=== PATIENT | female | born 1960 | race American Indian/Alaskan Native ===

== ENCOUNTER 2019-07-28 00:07 | Emergency (ER) | payer OTHER ==
--- NOTE | 2019-07-28 00:52 | XRay Report ---
LEFT TIBIA-FIBULA 2 VIEW(S) INDICATION / CLINICAL INFORMATION: fall COMPARISON: None available. FINDINGS: BONES / JOINT(S): Moderately displaced lateral tibial plateau fracture with about 1.3 cm gap in the a rticular surface. Vertical fracture line extends to the lateral cortex of the proximal tibial metadia physis. In addition, there are comminuted fractures of the proximal tibial and fibular shafts with mi ld displacement. No significant arthritis. SOFT TISSUES: No significant abnormality. ADDITIONAL FINDINGS: None. IMPRESSION: 1. Moderately displaced lateral tibial plateau fracture. 2. Comminuted, mildly displaced fractures of the proximal left tibial and fibular shafts. Signer Name: Samson Baca MD Signed: 07/28/2019 12:48 AM Workstation Name: [id number]
[2019-07-28] MEDS ORDERED: ONDANSETRON 4 MG ODT TAB PO ONE (01:22)
[2019-07-28] MEDS ORDERED: oxyCODONE /ACETAMINOPHEN 5-325MG TAB PO ONE (01:22)
[2019-07-28] MEDS ORDERED: IBUPROFEN 600 MG TAB PO ONE (01:22)
--- NOTE | 2019-07-28 01:33 | Emergency Department Report ---
ED Fall HPI - General Chief Complaint: Extremity Injury, Lower Stated Complaint: LF LEG PAIN Source: patient Mode of arrival: Wheelchair - History of Present Illness Initial Comments: Patient is a 59-year-old -[place] female with a history of hypertension and edw-lbahysx-ybcgkulyf diabetes who presented to the ED with complaint of acute onset persistent severe left knee and lower leg pain and swelling after she slipped lost balance and fell down on the floor from a 4 foot ladder while trying to clean her ceiling fans about 7 hours ago. Patient states that she landed on the left knee during the fall. Patient states that she is unable to bear weight on the left leg because of severe left knee pain. Patient denies head or neck injuries, back injuries, loss of consciousness, hip pain, di zziness, syncope, seizures, chest pain or shortness of breath, numbness and tingling or weakness of lower extremities bilaterally, headache or change in vision. MD Complaint: fall, other (left knee and lower leg pain, swelling, unable to bear weight on left leg) -: Sudden, hour(s) (7) Fall From: from height (distance) (4 feet) When Fall Occurred: 4-6 hours EVENTS MANAGER Fall Witnessed: no Place Fall Occurred: home Loss of Consciousness: none Prolonged Down Time?: no Symptoms Prior to Fall: none Location: other (left knee and lower leg) Location - Extremities: Left: Knee (pain, swelling), Leg (Pain) Severity: severe Severity scale (0 -10): 9 Quality: sharp, aching Context: tripped/slipped Associated Symptoms: denies. denies: headache, neck pain, numbness, weakness, chest paint, shortness of breath, abdominal pain, hematuria, unable to walk, lightheaded, vertigo, confusion, other - Related Data Home Medications Medication Instructions Recorded Confirmed Last Taken Glimepiride [Amaryl] 4 mg PO BID 03/12/13 03/12/13 03/11/13 20:00 Losartan [Cozaar] 100 mg PO QDAY 03/12/13 03/12/13 Unknown Ramipril 10 mg PO QDAY 03/12/13 03/12/13 Unknown metFORMIN [Glucophage] 850 mg PO BID 03/12/13 03/12/13 03/11/13 20:00 Previous Rx's Medication Instructions Recorded Last Taken Type Fluticasone Propionate [Flonase] 16 gm NS QDAY #1 spray.susp 03/12/13 Unknown Rx Loratadine (Nf) [Claritin] 10 mg PO DAILY #20 tablet 03/12/13 Unknown Rx Meclizine [Antivert] 12.5 mg PO TID PRN #15 tablet 03/12/13 Unknown Rx oxyCODONE /ACETAMINOPHEN [Percocet 1 tab PO Q6HR PRN #14 tablet 03/12/13 Unknown Rx 5/325 mg] predniSONE [Deltasone] 20 mg PO BID #4 tablet 03/12/13 Unknown Rx Allergies Allergy/AdvReac Type Severity Reaction Status Date / Time No Known Allergies Allergy Unverified 03/12/13 12:34 ED Review of Systems ROS: Stated complaint: LF LEG PAIN Other details as noted in HPI Constitutional: denies: chills, fever Eyes: denies: eye pain, eye discharge, vision change ENT: denies: ear pain, throat pain Respiratory: denies: cough, shortness of breath, wheezing Cardiovascular: denies: chest pain, palpitations Endocrine: no symptoms reported Gastrointestinal: denies: abdominal pain, nausea, vomiting, diarrhea, hematochezia Genitourinary: denies: urgency, dysuria, frequency, hematuria, discharge Musculoskeletal: joint swelling (Left knee pain and swelling), arthralgia (Left knee and left lower leg pain and swelling), myalgia. denies: back pain Skin: denies: rash, lesions Neurological: denies: headache, weakness, paresthesias Psychiatric: denies: anxiety, depression Hematological/Lymphatic: denies: easy bleeding, easy bruising ED Past Medical Hx - Past Medical History Hx Hypertension: Yes Hx Diabetes: Yes - Social History Smoking Status: Never Smoker Substance Use Type: None - Medications Home Medications: Home Medications Medication Instructions Recorded Confirmed Last Taken Type Fluticasone Propionate [Flonase] 16 gm NS QDAY #1 spray.susp 03/12/13 Unknown Rx Glimepiride [Amaryl] 4 mg PO BID 03/12/13 03/12/13 03/11/13 20:00 History Loratadine (Nf) [Claritin] 10 mg PO DAILY #20 tablet 03/12/13 Unknown Rx Losartan [Cozaar] 100 mg PO QDAY 03/12/13 03/12/13 Unknown History Meclizine [Antivert] 12.5 mg PO TID PRN #15 tablet 03/12/13 Unknown Rx Ramipril 10 mg PO QDAY 03/12/13 03/12/13 Unknown History metFORMIN [Glucophage] 850 mg PO BID 03/12/13 03/12/13 03/11/13 20:00 History oxyCODONE /ACETAMINOPHEN [Percocet 1 tab PO Q6HR PRN #14 tablet 03/12/13 Unknown Rx 5/325 mg] predniSONE [Deltasone] 20 mg PO BID #4 tablet 03/12/13 Unknown Rx ED Physical Exam - General Limitations: No Limitations General appearance: alert, in no apparent distress - Head Head exam: Present: atraumatic, normocephalic, normal inspection - Eye Eye exam: Present: normal appearance, PERRL, EOMI Pupils: Present: normal accommodation - ENT ENT exam: Present: normal exam, normal orophraynx, mucous membranes moist, TM's normal bilaterally, normal external ear exam - Neck Neck exam: Present: normal inspection, full ROM. Absent: tenderness, lymphadenopathy - Respiratory Respiratory exam: Present: normal lung sounds bilaterally. Absent: respiratory distress, wheezes, rales, rhonchi, chest wall tenderness, accessory muscle use, decreased breath sounds, prolonged expiratory - Cardiovascular Cardiovascular Exam: Present: regular rate, normal rhythm, normal heart sounds. Absent: systolic murmur, diastolic murmur, rubs, gallop - GI/Abdominal GI/Abdominal exam: Present: soft, normal bowel sounds. Absent: tenderness, guarding, rebound, hyperactive bowel sounds, hypoactive bowel sounds, organomegaly - Extremities Exam Extremities exam: Present: normal inspection, tenderness (Palpable severe left knee and left lower leg tenderness with limited range of motion due to pain), normal capillary refill, joint swelling (Left knee tenderness and swelling), calf tenderness. Absent: full ROM (Limited range of motion due to pain), pedal edema - Back Exam Back exam: Present: normal inspection, full ROM. Absent: tenderness, CVA tenderness (R), CVA tenderness (L), muscle spasm, paraspinal tenderness, vertebral tenderness - Neurological Exam Neurological exam: Present: alert, oriented X3, CN II-XII intact, abnormal gait (Unable to ambulate because of severe pain in the left knee), reflexes normal - Psychiatric Psychiatric exam: Present: normal affect, normal mood - Skin Skin exam: Present: warm, dry, intact, normal color. Absent: rash ED Course Vital Signs 07/28/19 07/28/19 07/28/19 00:12 01:44 02:00 Temperature 98.0 F 98.1 F Pulse Rate 104 H 98 H Respiratory 18 18 18 Rate Blood Pressure 136/64 Blood Pressure 157/62 [Left] O2 Sat by Pulse 99 99 Oximetry - Reevaluation(s) Reevaluation #1: 07/28/19 02:16 I paged and discussed the patient case with the [facility] transfer center and Dr. Archer the trauma attending physician accepted the patient. ED Medical Decision Making - Radiology Data Radiology results: report reviewed, image reviewed Findings [facility] [address] [place] [address] XRay Report Signed Patient: ESTELITA FUNG MR#: [id number] : 1960 Acct:[id number] Age/Sex: 59 / F ADM Date: 07/28/19 Loc: ED Attending Dr: Ordering Physician: MICHAELA SHAH MD Date of Service: 07/28/19 Procedure(s): XR tibia fibula 2V LT Accession Number(s): [id number] cc: MICHAELA SHAH MD Fluoro Time In Minutes: LEFT TIBIA-FIBULA 2 VIEW(S) INDICATION / CLINICAL INFORMATION: fall COMPARISON: None available. FINDINGS: BONES / JOINT(S): Moderately displaced lateral tibial plateau fracture with about 1.3 cm gap in the articular surface. Vertical fracture line extends to the lateral cortex of the proximal tibial metadiaphysis. In addition, there are comminuted fractures of the proximal tibial and fibular shafts with mild displacement. No significant arthritis. SOFT TISSUES: No significant abnormality. ADDITIONAL FINDINGS: None. IMPRESSION: 1. Moderately displaced lateral tibial plateau fracture. 2. Comminuted, mildly displaced fractures of the proximal left tibial and fibular shafts. Signer Name: Samson Baca MD Signed: 07/28/2019 12:48 AM Workstation Name: [id number] Transcribed By: DT Dictated By: Shmuel Baca MD Electronically Authenticated By: Shmuel Baca MD Signed Date/Time: 07/28/19 0048 DD/ 0043 TD/TT: - Medical Decision Making This is a 59-year-old -[place] female with a history of hypertension and uew-zxfqsit-panpwgsep diabetes who presented to the ED with complaint of acute onset persistent severe left knee and lower leg pain and swelling after she slipped lost balance and fell down on the floor from a 4 foot ladder while trying to clean her ceiling fans about 7 hours ago. Patient states that she landed on the left knee during the fall. Patient states that she is unable to bear weight on the left leg because of severe left knee pain. In the ED, patient is alert and oriented x3 and is not in any distress but appears to be in significant pain and unable to bear weight on left leg because of your left knee pain. Patient was treated for pain in the ED and left knee x-ray shows moderately displaced lateral tibial plateau fracture with about 1.3 cm gap in the articular surface. Vertical fracture line extends to the lateral cortex of the proximal tibial metadiaphysis. In addition, there are comminuted fractures of the proximal tibial and fibular shafts with mild displacement. No significant arthritis. These findings were discussed with the ED attending physician Dr. 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 The left knee was then immobilized at the transfer center contacted to initiate the transfer process. I paged and discussed the patient's case with the [facility] transfer center and Dr. Archer the trauma attending physician accepted the patient transfer. Patient shall be transported by road to the [place] ED for further evaluation by the trauma team. - Differential Diagnosis Knee fracture; Tib-fib fracture; Knee contusion; knee sprain; leg sprain Critical care attestation.: If time is entered above; I have spent that time in minutes in the direct care of this critically ill patient, excluding procedure time. ED Disposition Clinical Impression: Displaced comminuted fracture of shaft of left tibia, initial encounter for closed fracture, Displaced comminuted fracture of shaft of left fibula, initial encounter for closed fracture Closed fracture of left tibial plateau Qualifiers: Encounter type: initial encounter Qualified Code(s): S82.142A - Displaced bicondylar fracture of left tibia, initial encounter for closed fracture Disposition: DC/TX-70 ANOTHER TYPE HLTHCARE Is pt being admited?: No Condition: Stable Referrals: FLORENCIO GONZALEZ MD [Primary Care Provider] - 3-5 Days Time of Disposition: 01:43 Print Language: SYRIAC
[2019-07-28 02:05] VITALS: BP 157/62
== END 2019-07-28 03:50 | disposition other institution (70) ==
LOC: ED 00:07
DX: S82.252A Displaced comminuted fracture of shaft of left tibia, initial encounter for closed fracture (principal); S82.452A Displaced comminuted fracture of shaft of left fibula, initial encounter for closed fracture; S82.109A Unspecified fracture of upper end of unspecified tibia, initial encounter for closed fracture; I10 Essential (primary) hypertension; E11.9 Type 2 diabetes mellitus without complications; Z79.899 Other long term (current) drug therapy; W11.XXXA Fall on and from ladder, initial encounter; Y93.89 Activity, other specified; Y92.89 Other specified places as the place of occurrence of the external cause; Y99.8 Other external cause status
CPT/HCPCS: Q0162